=== PATIENT | male | born 1970 | race Caucasian/White ===

== ENCOUNTER 2019-01-04 19:30 | Emergency (ER) | payer SELFPAY ==
[~2019-01-04] VITALS: Ht 182.9 cm; Wt 84.1 kg
[2019-01-04 19:36] VITALS: Ht 182.9 cm; Wt 84.1 kg
[2019-01-04] MEDS ORDERED: LISINOPRIL40 MG PO (19:39)
[2019-01-04] MEDS ORDERED: CYCLOBENZAPRINE5 MG PO (19:39)
[2019-01-04 20:22] LABS: BASOPHILS 0.5 % (0-2); HEMATOCRIT 37.6 % (42.0-54.0); HEMOGLOBIN 12.9 g/dL (13.5-17.5); IMMATURE GRANULOCYTES 0.6 % (0-5); LYMPHOCYTES 15.2 % (15-50); MCH 31.7 pg (26.0-34.0); MCHC 34.3 g/dL (31.0-37.0); MCV 92.4 fL (80.0-100.0); MEAN PLATELET VOLUME 9.9 fL (7.4-10.4); MONOCYTES 11.1 % (2-11); NEUTROPHILS 70.6 % (40-80); PLATELET COUNT 212 10x3/uL (130-400); RBC 4.07 10x6/uL (4.20-6.10); RDW 13.3 % (11.5-14.5); WBC 12.2 10x3/uL (4.8-10.8)
[2019-01-04] MEDS ORDERED: TYLENOL W/CODEI1 TAB PO (20:42)
[2019-01-04] MEDS ORDERED: CLEOCIN HCL300 MG PO (20:42)
[2019-01-04 20:47] LABS: ALBUMIN 3.7 g/dL (3.4-5.0); ANION GAP 12.4 mmol/L (8-16); BILIRUBIN - TOTAL 0.75 mg/dL (0.2-1.3); CALCIUM 8.4 mg/dL (8.5-10.1); CARBON DIOXIDE 26.6 mmol/L (21.0-32.0); CREATININE - SERUM 1.3 mg/dL (0.6-1.3)
[2019-01-04 21:47] VITALS: BP 131/82
== END 2019-01-04 21:47 | disposition home or self-care (01) ==
LOC: D.ER 19:30
PROVIDERS: Family Medicine
DX: L03.116 Cellulitis of left lower limb (principal)

== ENCOUNTER 2020-02-13 16:58 | Emergency (ER) | payer MEDICAID ==
[~2020-02-13] VITALS: Ht 182.9 cm; Wt 90.0 kg
[~2020-02-13 16:58] MED LIST: CLEOCIN HCL300 MG PO; CYCLOBENZAPRINE5 MG PO; LISINOPRIL40 MG PO; TYLENOL W/CODEI1 TAB PO
[2020-02-13] MEDS ORDERED: TORADOL10 MG PO (18:30)
[2020-02-13] MEDS ORDERED: METHOCARBAMOL500 MG PO (18:30)
== END 2020-02-13 18:59 | disposition home or self-care (01) ==
LOC: D.ER 16:58
DX: M62.830 Muscle spasm of back (principal); M54.6 Pain in thoracic spine; J45.909 Unspecified asthma, uncomplicated; I10 Essential (primary) hypertension; Z72.0 Tobacco use